=== PATIENT | female | born 1995 | race Two or more races ===

== ENCOUNTER 2016-06-28 18:26 | Emergency (ER) | payer BC, OTHER ==
[2016-06-28 18:34] VITALS: RESP 16
[2016-06-28] MEDS ORDERED: ACETAMINOPHEN 500 MG TAB PO ONE (19:27)
[2016-06-28] MEDS ORDERED: NS 1,000 ML IV ONE ×3 (19:27→21:31)
--- NOTE | 2016-06-28 19:29 | EDPHY ---
H & P Stated Complaint: Diagnosed with UTI at [facility]. No improvemnet so sent here. Time Seen by Provider: 06/28/16 19:16 HPI/ROS: CHIEF COMPLAINT: Flank pain HISTORY OF PRESENT ILLNESS: Patient is a 21-year-old female who comes to the emergency department complaining of right flank pain, fever and dehydration. She began having dysuria and flank pain 2 days ago. [facility] She was started on Macrobid. She has taken 2 doses thus far. She feels that symptoms are not improving. REVIEW OF SYSTEMS: Constitutional: denies: chills, fever, recent illness, recent injury EENTM: denies: blurred vision, double vision, nose congestion Respiratory: denies: cough, shortness of breath Cardiac: denies: chest pain, irregular heart rate, lightheadedness, palpitations Gastrointestinal/Abdominal: denies: abdominal pain, diarrhea, nausea, vomiting, blood streaked stools Genitourinary: See HPI Musculoskeletal: denies: joint pain, muscle pain Skin: denies: lesions, rash, jaundice, bruising Neurological: denies: headache, numbness, paresthesia, tingling, dizziness, weakness Hematologic/Lymphatic: denies: blood clots, easy bleeding, easy bruising Immunologic/allergic: denies: HIV/AIDS, transplant EXAM: GENERAL: Well-appearing, well-nourished and in no acute distress. HEAD: Atraumatic, normocephalic. EYES: Pupils equal round and reactive to light, extraocular movements intact, sclera anicteric, conjunctiva are normal. ENT: TMs normal, nares patent, oropharynx clear without exudates. Moist mucous membranes. NECK: Normal range of motion, supple without lymphadenopathy or JVD. LUNGS: Breath sounds clear to auscultation bilaterally and equal. No wheezes rales or rhonchi. HEART: Regular rate and rhythm without murmurs, rubs or gallops. ABDOMEN: Soft, nontender, normoactive bowel sounds. No guarding, no rebound. No masses appreciated. BACK: Right-sided CVA tenderness, no spinal tenderness, step-offs or deformities EXTREMITIES: Normal range of motion, no pitting or edema. No clubbing or cyanosis. NEUROLOGICAL: Cranial nerves II through XII grossly intact. Normal speech, normal gait. 5/5 strength, normal movement in all extremities, normal sensation PSYCH: Normal mood, normal affect. SKIN: Warm, dry, normal turgor, no visible rashes or lesions. Source: Patient Exam Limitations: No limitations - Personal History LMP (Females 10-55): 1-7 Days Ago Current Tetanus Diphtheria and Acellular Pertussis (TDAP): Yes - Medical/Surgical History Hx Asthma: No Hx Chronic Respiratory Disease: No Hx Diabetes: No Hx Cardiac Disease: No Hx Renal Disease: No Hx Cirrhosis: No Hx Alcoholism: No Hx HIV/AIDS: No Hx Splenectomy or Spleen Trauma: No Other PMH: Denies. - Family History Significant Family History: Hypertension - Social History Smoking Status: Never smoked Alcohol Use: Sober Drug Use: None Constitutional: Initial Vital Signs Temperature (C) 39.1 C H 06/28/16 18:30 Heart Rate 127 H 06/28/16 18:30 Respiratory Rate 16 06/28/16 18:30 Blood Pressure 111/73 06/28/16 18:30 O2 Sat (%) 96 06/28/16 18:30 O2 Delivery Mode Room Air Allergies/Adverse Reactions: No Known Allergies Allergy (Unverified 06/29/16 04:23) Home Medications: Medication Instructions Recorded Cephalexin [Keflex] 500 mg PO TID #21 cap 06/28/16 Phenazopyridine HCl [Pyridium] 200 mg PO TID #6 tab 06/28/16 Medical Decision Making ED Course/Re-evaluation: Patient is well appearing. She is tachycardic and febrile. Will start IV fluids and Tylenol and observe. Macrobid should be an adequate antibiotic choice. 9:00 p.m. the patient is doing better. Her heart rate is 115. She is still slightly febrile. I will treat her with ibuprofen and another L of fluid. I have also decided to go ahead and switch her to Rocephin and Keflex. 9:30 p.m. the patient is doing great. She states that she is asymptomatic. She is happy and laughing. She is still slightly tachycardic at 110. She has only urinated once since arriving. I will treat her with more fluids. 9:50 p.m. the patient is feeling completely better. Her heart rate is normalizing. She is eager to go and declines further workup or observation. I have written a prescription for Keflex. She did receive IM Rocephin yesterday as well. Differential Diagnosis: Partial list of the Differential diagnosis considered include but were not limited to; pyelonephritis, urinary tract infection and although unlikely based on the history and physical exam, I also considered kidney stone, , ovarian cyst, abscess, appendicitis, pneumonia. I discussed these differential diagnoses and the plan with the patient as well as the usual and expected course. The patient understands that the diagnosis is provisional and that in medicine we are not always correct and that further workup is often warranted. Usual and customary warnings were given. All of the patient's questions were answered. The patient was instructed to return to the emergency department should the symptoms at all worsen or return, otherwise to followup with the physician as we discussed. - Data Points Laboratory Results: Laboratory Results 06/28/16 19:30 06/28/16 19:30 Microbiology Results: MICROBIOLOGY 06/28/16 19:49 Urine,Clean Catch Urine Culture - Preliminary Medications Given: Discontinued Medications Acetaminophen (Tylenol) 1,000 mg PO EDNOW ONE Stop: 06/28/16 19:28 Last Admin: 06/28/16 19:50 Dose: 1,000 mg Sodium Chloride (Ns) 1,000 mls @ 0 mls/hr IV ONCE ONE PRN Reason: Wide Open Stop: 06/28/16 19:28 Last Admin: 06/28/16 19:35 Dose: 1,000 mls Ceftriaxone Sodium/Dextrose (Rocephin 1 Gm (Premix)) 50 mls @ 100 mls/hr IV EDNOW ONE PRN Reason: Protocol Stop: 06/28/16 19:58 Last Admin: 06/28/16 19:50 Dose: 50 mls Sodium Chloride (Ns) 1,000 mls @ 0 mls/hr IV ONCE ONE PRN Reason: Wide Open Stop: 06/28/16 20:59 Last Admin: 06/28/16 21:35 Dose: 1,000 mls Sodium Chloride (Ns) 1,000 mls @ 0 mls/hr IV ONCE ONE PRN Reason: Wide Open Stop: 06/28/16 21:32 Last Admin: 06/28/16 21:36 Dose: 1,000 mls Ibuprofen (Motrin) 600 mg PO EDNOW ONE Stop: 06/28/16 20:59 Last Admin: 06/28/16 21:34 Dose: Not Given Ketorolac Tromethamine (Toradol) 15 mg IVP ONCE ONE Stop: 06/28/16 21:36 Last Admin: 06/28/16 20:10 Dose: 15 mg Departure - Departure Disposition: Home, Routine, Self-Care Clinical Impression: Urinary tract infection Qualifiers: Urinary tract infection type: acute pyelonephritis Qualified Code(s): N10 - Acute pyelonephritis Condition: Fair Instructions: Urinary Tract Infection in Women (ED) Referrals: [facility] [Other] - As per Instructions Prescriptions: Cephalexin [Keflex] 500 mg PO TID #21 cap Phenazopyridine HCl [Pyridium] 200 mg PO TID #6 tab
[2016-06-28 19:40] LABS: % IMMATURE GRANULYOCYTES 0.6 % (0.0-1.1); ABSOLUTE IMMATURE GRANULOCYTES 0.07 10^3/uL (0.00-0.10); ADD DIFF? NO; ADD MORPH? NO; ADD SCAN? NO; ATYPICAL LYMPHOCYTE FLAG 0 (0-99); FRAGMENT RBC FLAG 0 (0-99); HEMATOCRIT 37.3 % (38.0-47.0); HEMOGLOBIN 12.6 g/dL (12.6-16.3); LEFT SHIFT FLG 0 (0-99); LIPEMIA HEMOLYSIS FLAG 90 (0-99); MEAN CELL HEMOGLOBIN 28.6 pg (27.9-34.1); MEAN CELL HEMOGLOBIN CONCENTR. 33.8 g/dL (32.4-36.7); MEAN CELL VOLUME 84.8 fL (81.5-99.8); MEAN PLATELET VOLUME 10.3 fL (8.7-11.7); PLATELET CLUMPS FLAG 10 (0-99); PLATELET COUNT 265 10^3/uL (150-400); RED CELL DISTRIBUTION WIDTH 13.8 % (11.5-15.2)
[2016-06-28 19:48] LABS: COLOR YELLOW; LEUKOCYTE ESTERASE,URINE 1+ (NEGATIVE); NITRITE,URINE NEGATIVE (NEGATIVE)
[2016-06-28 19:51] LABS: BACTERIA 3+ /hpf (NONE SEEN)
[2016-06-28 19:56] LABS: ANION GAP 11 mEq/L (8-16); CALCIUM 9.5 mg/dL (8.5-10.4); CARBON DIOXIDE 24 mEq/l (22-31); CHLORIDE 99 mEq/L (97-110); CREATININE 0.8 mg/dL (0.6-1.0); GLOMERULAR FILTRATION RATE > 60; GLUCOSE 106 mg/dL (70-100); POTASSIUM 3.6 mEq/L (3.5-5.2); SODIUM 134 mEq/L (134-144)
[2016-06-28] MEDS ORDERED: KETOROLAC 15 MG/1 ML SDV ONE (20:25)
[2016-06-28] MEDS ORDERED: IBUPROFEN 600 MG TAB PO ONE (20:58)
[2016-06-28] MEDS ORDERED: ACETAMINOPHEN 500 MG TAB ONE (21:34)
[2016-06-28] MEDS ORDERED: KETOROLAC 15 MG/1 ML SDV IVP ONE (21:35)
[2016-06-28 22:04] VITALS: BP 116/71; PULSE 100; TEMP 97.9; O2SAT 94
== END 2016-06-28 22:03 | disposition home or self-care (01) ==
DX: N10 Acute pyelonephritis (principal); B96.89 Other specified bacterial agents as the cause of diseases classified elsewhere
CPT/HCPCS: 96365; J0696; J1885

== ENCOUNTER 2016-06-29 04:15 | Observation (INO) | payer OTHER, BC ==
[2016-06-29] MEDS ORDERED: ONDANSETRON 4 MG/2 ML VIAL IVP ONE (04:44)
[2016-06-29] MEDS ORDERED: NS 1,000 ML IV ONE ×2 (04:44)
[2016-06-29] MEDS ORDERED: KETOROLAC 30 MG/1 ML SDV IVP ONE (04:44)
[2016-06-29 05:18] LABS: ABSOLUTE IMMATURE GRANULOCYTES 0.09 10^3/uL (0.00-0.10); ADD DIFF? NO; ADD MORPH? NO; ADD SCAN? NO; ATYPICAL LYMPHOCYTE FLAG 0 (0-99); FRAGMENT RBC FLAG 0 (0-99); HEMATOCRIT 35.7 % (38.0-47.0); HEMOGLOBIN 11.8 g/dL (12.6-16.3); LEFT SHIFT FLG 10 (0-99); LIPEMIA HEMOLYSIS FLAG 80 (0-99); MEAN CELL HEMOGLOBIN 28.4 pg (27.9-34.1); MEAN CELL HEMOGLOBIN CONCENTR. 33.1 g/dL (32.4-36.7); MEAN PLATELET VOLUME 10.6 fL (8.7-11.7); PLATELET CLUMPS FLAG 0 (0-99); PLATELET COUNT 236 10^3/uL (150-400); RED BLOOD CELL COUNT 4.15 10^6/uL (4.18-5.33)
[2016-06-29 05:36] LABS: ANION GAP 10 mEq/L (8-16); CARBON DIOXIDE 19 mEq/l (22-31); CHLORIDE 108 mEq/L (97-110); CREATININE 0.7 mg/dL (0.6-1.0); GLOMERULAR FILTRATION RATE > 60; GLUCOSE 101 mg/dL (70-100); POTASSIUM 3.9 mEq/L (3.5-5.2); SODIUM 137 mEq/L (134-144)
[2016-06-29] MEDS ORDERED: ACETAMINOPHEN 500 MG TAB PO ONE (05:52)
--- NOTE | 2016-06-29 06:04 | EDPHY ---
H & P Stated Complaint: KIDNEY INFECTION NOW, WOKE UP SHAKING AND HOT Time Seen by Provider: 06/29/16 04:33 HPI/ROS: HPI The patient presents with Shaking chills which have been present since she was discharged from the hospital at about 11:00 p.m.. She was feeling fairly well when she left the emergency room, however when she went home and tried to go to sleep she woke up every approximately 20-30 minutes with shaking chills and generally felt achy and uncomfortable throughout her body. She continues to complain of right-sided flank pain which is moderate in severity. She has not had any vomiting. REVIEW OF SYSTEMS Constitutional: shaking chills Eyes: No discharge. ENT: No sore throat. Cardiovascular: No chest pain, no palpitations. Respiratory: No cough, no shortness of breath. Gastrointestinal: No abdominal pain, no vomiting. Genitourinary: No hematuria. Musculoskeletal: See HPI Skin: No rashes. Neurological: No headache. PMHx: Healthy Soc Hx: College student PHYSICAL General Appearance: Alert, no distress Eyes: Pupils equal and round no pallor or injection ENT, Mouth: Mucous membranes moist Respiratory: There are no retractions, lungs are clear to auscultation Cardiovascular: Regular rate and rhythm Gastrointestinal: Abdomen is soft with mild right lower quadrant tenderness which extends laterally Back: Moderate right-sided CVA tenderness Neurological: A&O, moves all extremities Skin: Warm and dry, no rashes Musculoskeletal: Neck is supple non tender Extremities: symmetrical, full range of motion Psychiatric: Patient is oriented X 3, there is no agitation Source: Patient Exam Limitations: No limitations - Personal History Current Tetanus/Diphtheria Vaccine: Yes Current Tetanus Diphtheria and Acellular Pertussis (TDAP): Yes - Medical/Surgical History Hx Asthma: No Hx Chronic Respiratory Disease: No Hx Diabetes: No Hx Cardiac Disease: No Hx Renal Disease: No Hx Cirrhosis: No Hx Alcoholism: No Hx HIV/AIDS: No Hx Splenectomy or Spleen Trauma: No Other PMH: Denies. - Social History Smoking Status: Never smoked Constitutional: Initial Vital Signs Temperature (C) 36.8 C 06/29/16 04:20 Heart Rate 128 H 06/29/16 04:20 Respiratory Rate 18 06/29/16 04:20 Blood Pressure 135/77 H 06/29/16 04:20 O2 Sat (%) 98 06/29/16 04:20 O2 Delivery Mode Room Air Allergies/Adverse Reactions: No Known Allergies Allergy (Unverified 06/29/16 04:23) Home Medications: Medication Instructions Recorded Cephalexin [Keflex] 500 mg PO TID #21 cap 06/28/16 Phenazopyridine HCl [Pyridium] 200 mg PO TID #6 tab 06/28/16 Medical Decision Making - Diagnostics Imaging: Right lower quadrant ultrasound demonstrates no visualized appendix, discussed with Dr. Anderson of Radiology. Differential Diagnosis: This is a 21-year-old female, otherwise healthy, who was diagnosed with pyelonephritis today from the emergency room, she received IV fluids and antibiotics and was feeling better, now returns with shaking chills for the last several hours, associated with generalized malaise. On exam, she is tachycardic in the 120s, she is uncomfortable appearing with right-sided CVA tenderness. Differential diagnosis includes pyelonephritis, appendicitis given the tenderness in the right lower quadrant, bacteremia, pneumonia is a consideration , however lungs sound clear, meningitis is also a consideration, however no rash , headache, nuchal rigidity, photophobia. In the emergency room, the patient was given 2 L of IV fluid and continue to be tachycardic despite this. Labs were repeated and were unremarkable and consistent with labs earlier in the day including a lactate. Because of her persistent tachycardia, she will be admitted to the hospitalist service. I have discussed the diagnosis and treatment plan with her at length. She has received ceftriaxone earlier in the day, thus I will not repeat the dosing currently. Urine culture is still pending. - Data Points Laboratory Results: Laboratory Results 06/29/16 05:00 06/29/16 05:00 06/29/16 06/29/16 06/29/16 05:00 05:00 05:00 WBC 9.33 10^3/uL 10^3/uL (3.80-9.50) RBC 4.15 10^6/uL L 10^6/uL (4.18-5.33) Hgb 11.8 g/dL L g/dL (12.6-16.3) Hct 35.7 % L % (38.0-47.0) MCV 86.0 fL fL (81.5-99.8) MCH 28.4 pg pg (27.9-34.1) MCHC 33.1 g/dL g/dL (32.4-36.7) RDW 14.0 % % (11.5-15.2) Plt Count 236 10^3/uL 10^3/uL (150-400) MPV 10.6 fL fL (8.7-11.7) Neut % (Auto) 76.3 % H % (39.3-74.2) Lymph % (Auto) 11.7 % L % (15.0-45.0) [place] % (Auto) 10.5 % % (4.5-13.0) Eos % (Auto) 0.1 % L % (0.6-7.6) Baso % (Auto) 0.4 % % (0.3-1.7) Nucleat RBC Rel Count 0.0 % % (0.0-0.2) Absolute Neuts (auto) 7.12 10^3/uL H 10^3/uL (1.70-6.50) Absolute Lymphs (auto) 1.09 10^3/uL 10^3/uL (1.00-3.00) Absolute Monos (auto) 0.98 10^3/uL H 10^3/uL (0.30-0.80) Absolute Eos (auto) 0.01 10^3/uL L 10^3/uL (0.03-0.40) Absolute Basos (auto) 0.04 10^3/uL 10^3/uL (0.02-0.10) Absolute Nucleated RBC 0.00 10^3/uL 10^3/uL (0-0.01) Immature Gran % 1.0 % % (0.0-1.1) Immature Gran # 0.09 10^3/uL 10^3/uL (0.00-0.10) VBG Lactic Acid 0.9 mmol/L mmol/L (0.7-2.1) Sodium 137 mEq/L mEq/L (134-144) Potassium 3.9 mEq/L mEq/L (3.5-5.2) Chloride 108 mEq/L mEq/L (97-110) Carbon Dioxide 19 mEq/l L mEq/l (22-31) Anion Gap 10 mEq/L mEq/L (8-16) BUN 8 mg/dL mg/dL (7-23) Creatinine 0.7 mg/dL mg/dL (0.6-1.0) Estimated GFR > 60 Glucose 101 mg/dL H mg/dL (70-100) Calcium 9.0 mg/dL mg/dL (8.5-10.4) Medications Given: Discontinued Medications Acetaminophen (Tylenol) 1,000 mg PO EDNOW ONE Stop: 06/29/16 05:53 Last Admin: 06/29/16 06:21 Dose: 1,000 mg Sodium Chloride (Ns) 1,000 mls @ 0 mls/hr IV ONCE ONE PRN Reason: Wide Open Stop: 06/29/16 04:45 Last Admin: 06/29/16 05:00 Dose: 1,000 mls Sodium Chloride (Ns) 1,000 mls @ 0 mls/hr IV ONCE ONE PRN Reason: Wide Open Stop: 06/29/16 04:45 Last Admin: 06/29/16 05:07 Dose: 1,000 mls Ketorolac Tromethamine (Toradol) 15 mg IVP EDNOW ONE Stop: 06/29/16 04:45 Last Admin: 06/29/16 05:00 Dose: 15 mg Ondansetron HCl (Zofran) 4 mg IVP EDNOW ONE Stop: 06/29/16 04:45 Last Admin: 06/29/16 05:00 Dose: 4 mg Departure - Departure Disposition: [facility] Clinical Impression: Pyelonephritis Condition: Fair
[2016-06-29] MEDS ORDERED: ONDANSETRON DISINTEGRATING 4 MG TAB PO PRN (07:38)
[2016-06-29] MEDS ORDERED: ACETAMINOPHEN 500 MG TAB PO PRN (07:38)
[2016-06-29] MEDS ORDERED: ONDANSETRON 4 MG/2 ML VIAL IVP PRN (07:38)
[2016-06-29] MEDS ORDERED: KETOROLAC 30 MG/1 ML SDV IVP PRN (07:39)
[2016-06-29] MEDS ORDERED: NS 1,000 ML IV SCH (07:45)
[2016-06-29 08:08] VITALS: RESP 14
[2016-06-29] MEDS ORDERED: CEFTRIAXONE 1 GM/DEXTROSE/50 ML BAG IV ONE (08:09)
--- NOTE | 2016-06-29 08:37 | PDGENHP ---
History and Physical - Chief Complaint flank pain - History of Present Illness Patient is a 21/F with no significant pmh who presents to the ED with complaint of R flank pain and fever. Patient states symptoms started on 06/25, with shaking chills when she woke up, then associated with dysuria. SHe went to a [facility] urgent care for evaluation, was diagnosed with a urinary tract infection and given a prescription for macrobid. She reports compliance with this, but her fevers persisted, associated with myalgias/malaise and persistent R flank pain. She came to the [facility] ED for evaluation on 06/28, she met mild sepsis criteria with leukocytosis, fever and tachycardia and UA revealed persistent UTI. She was given a dose of IV antibiotics, her VS stabilized and she was discharged home with PO antibiotics. She returns a couple hours later with persistent fevers, chills and flank pain. On return to ED, patient was again febrile and tachycardic. SHe was given additional IVF resuscitation with some improvement in VS, however, remained somewhat tachycardic. Given this, she was admitted to the hospitalist service. 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 Review of Systems ROS: 10pt was reviewed & negative except for what was stated in HPI & below Physical Exam Temp Pulse Resp BP Pulse Ox 37.1 C 101 H 14 117/81 H 94 06/29/16 08:00 06/29/16 08:00 06/29/16 08:00 06/29/16 08:00 06/29/16 08:00 Constitutional: no apparent distress, appears nourished, not in pain Eyes: PERRL, anicteric sclera, EOMI Ears, Nose, Mouth, Throat: moist mucous membranes, hearing normal, ears appear normal, no oral mucosal ulcers Cardiovascular: regular rate and rhythym, no murmur, rub, or gallop, No edema Peripheral Pulses: 2+: dorsalis-pedis (R), dorsalis-pedis (L) Respiratory: no respiratory distress, no rales or rhonchi, clear to auscultation Gastrointestinal: normoactive bowel sounds, soft, non-tender abdomen, no palpable masses Genitourinary: no bladder fullness, no bladder tenderness, other (mild R cva tenderness) Skin: warm, normal color, no rashes or abrasions, no fluctuance, no induration, No mottled Musculoskeletal: full muscle strength, no muscle tenderness, normal joint ROM, no joint effusions Neurologic: AAOx3, sensation intact bilaterally, CN II-XII Intact, No weakness, No numbness Psychiatric: interacting appropriately, not anxious, not encephalopathic, thought process linear Lab Data & Imaging Review 06/29/16 05:00 06/29/16 05:00 WBC 9.33 10^3/uL (3.80-9.50) 06/29/16 05:00 RBC 4.15 10^6/uL (4.18-5.33) L 06/29/16 05:00 Hgb 11.8 g/dL (12.6-16.3) L 06/29/16 05:00 Hct 35.7 % (38.0-47.0) L 06/29/16 05:00 MCV 86.0 fL (81.5-99.8) 06/29/16 05:00 MCH 28.4 pg (27.9-34.1) 06/29/16 05:00 MCHC 33.1 g/dL (32.4-36.7) 06/29/16 05:00 RDW 14.0 % (11.5-15.2) 06/29/16 05:00 Plt Count 236 10^3/uL (150-400) 06/29/16 05:00 MPV 10.6 fL (8.7-11.7) 06/29/16 05:00 Neut % (Auto) 76.3 % (39.3-74.2) H 06/29/16 05:00 Lymph % (Auto) 11.7 % (15.0-45.0) L 06/29/16 05:00 [place] % (Auto) 10.5 % (4.5-13.0) 06/29/16 05:00 Eos % (Auto) 0.1 % (0.6-7.6) L 06/29/16 05:00 Baso % (Auto) 0.4 % (0.3-1.7) 06/29/16 05:00 Nucleat RBC Rel Count 0.0 % (0.0-0.2) 06/29/16 05:00 Absolute Neuts (auto) 7.12 10^3/uL (1.70-6.50) H 06/29/16 05:00 Absolute Lymphs (auto) 1.09 10^3/uL (1.00-3.00) 06/29/16 05:00 Absolute Monos (auto) 0.98 10^3/uL (0.30-0.80) H 06/29/16 05:00 Absolute Eos (auto) 0.01 10^3/uL (0.03-0.40) L 06/29/16 05:00 Absolute Basos (auto) 0.04 10^3/uL (0.02-0.10) 06/29/16 05:00 Absolute Nucleated RBC 0.00 10^3/uL (0-0.01) 06/29/16 05:00 Immature Gran % 1.0 % (0.0-1.1) 06/29/16 05:00 Immature Gran # 0.09 10^3/uL (0.00-0.10) 06/29/16 05:00 VBG Lactic Acid 0.9 mmol/L (0.7-2.1) 06/29/16 05:00 Sodium 137 mEq/L (134-144) 06/29/16 05:00 Potassium 3.9 mEq/L (3.5-5.2) 06/29/16 05:00 Chloride 108 mEq/L (97-110) 06/29/16 05:00 Carbon Dioxide 19 mEq/l (22-31) L 06/29/16 05:00 Anion Gap 10 mEq/L (8-16) 06/29/16 05:00 BUN 8 mg/dL (7-23) 06/29/16 05:00 Creatinine 0.7 mg/dL (0.6-1.0) 06/29/16 05:00 Estimated GFR > 60 06/29/16 05:00 Glucose 101 mg/dL (70-100) H 06/29/16 05:00 Calcium 9.0 mg/dL (8.5-10.4) 06/29/16 05:00 Visualized and Interpreted Chest x-ray results: Yes Chest X-Ray results: no infiltrate, normal Visualized and Interpreted imaging results: Yes Assessment & Plan Assessment: Patient is 21/F with no pmh who presents to the ED with persistent fever, chills and flank pain associated with UTI that has failed outpatient PO antibiotic treatment. Plan: # sepsis secondary to pyelonephritis Patient with fever, tachycardia and leukocytosis on first ED presentation, consistent with sepsis. Lactic acid is normal and no evidence of end organ damage. SHe was given IVF resuscitation, cultured and initiated on IV ceftriaxone. Will cont this for a second dose today and f/u culture results. Will also check renal US to r/o hydronephrosis or stone. She has no associated nausea, vomiting and is tolerating po intake, so maybe can switch to PO antibiotics within the next 24 hours. # dispo: admit to observation status # full code
[2016-06-29 12:11] VITALS: BP 119/82; PULSE 90; TEMP 99; O2SAT 99
--- NOTE | 2016-06-30 08:47 | HOSPPROG ---
Hospitalist Progress Note Assessment/Plan: Review urine culture results showing E.coli, pansensitive. Patient discharged on Keflex. Called patient at number she gave me at [phone] and that number is not accepting calls. By culture results and prescribed antibiotic the patient should improve if she takes the antibiotic. Patient was told to followup at [facility] if she has furtrher problems when seen in the ER yesterday at the itme of discharge Objective: Vital Signs Temp Pulse Resp BP Pulse Ox 37.2 C 90 14 119/82 H 99 06/29/16 12:00 06/29/16 12:00 06/29/16 12:00 06/29/16 12:00 06/29/16 12:00 06/29/16 06/30/16 07/01/16 05:59 05:59 05:59 Intake Total 4000 Balance 4000 ICD10 Worksheet Patient Problems: Problems Problem Status Onset Pyelonephritis Acute
== END 2016-06-29 12:48 | disposition home or self-care (01) ==
PROVIDERS: ADMIT Internal Medicine; ATTEND Internal Medicine
DX: N12 Tubulo-interstitial nephritis, not specified as acute or chronic (principal); A41.51 Sepsis due to Escherichia coli [E. coli]
CPT/HCPCS: 96374; J0696; J1885; J2405